=== PATIENT | male | born 1965 | race Caucasian/White ===

== ENCOUNTER 2023-11-09 09:07 | Emergency (ER) | payer SELFPAY ==
[2023-11-09 09:15] VITALS: BP 105/75
--- NOTE | 2023-11-09 09:58 | ED.GENMED ---
History of Present Illness
General
Chief Complaint: Skin Surface Trauma
Source: patient
Exam Limitations: none
Time Seen by Provider: 11/09/23 09:34
Nursing documentation reviewed up to this point in time: agreed with
Travel History
Have you had any contact with someone who has COVID-19?: No
Do you have any symptoms of coronavirus? Fever > 100 degrees, chills, cough, shortness of breath, sore throat, loss of taste or smell, muscle aches, or headache?: No
History of Present Illness
History of Present Illness:
58-year-old male presenting to the emergency department today with concerns of left hand thumb laceration that occurred just prior to arrival when he was cutting boxes with a box chipper. Lycette shot was 5 years ago. Noticed immediate bleeding to
the area applied pressure which controlled the bleeding denies any significant pain denies numbness weakness able to move his thumb normally.
Review of Systems
Review of Systems
Allergies reviewed?: Yes
All Other Systems: ROS reviewed and negative except as documented in HPI and ROS
Phy Exam
Physical Exam
Physical Exam:
GENERAL: Alert , in no apparent distress
EYE: pupils equal and reactive
NECK: Supple, no significant adenopathy.
ENT: o/p clr, mmm.
CARDIAC: Regular rate and rhythm .
LUNGS: Clear breath sounds bilaterally, no acute respiratory distress, no wheezes/rales/rhonchi
ABDOMEN: Soft, without focal tenderness, no r/g, no cvat
NEUROLOGICAL: Alert and oriented, no focal neuro deficits
SKIN: Laceration to the dorsal aspect of the thenar region roughly 1 cm in length active bleeding nonpulsatile dark red in color. Warm and dry, skin intact.
MUSCULOSKELETAL: No edema, well perfused.
PSYCH: Normal and appropriate interaction.
Course
Vital Signs
Initial and Last Documented VS:
Initial Vital Signs
Temp Pulse Resp BP Pulse Ox
98.4 F 58 16 105/75 98
11/09/23 09:15 11/09/23 09:15 11/09/23 09:15 11/09/23 09:15 11/09/23 09:15
Last Documented Vital Signs
Temp Pulse Resp BP Pulse Ox
98.4 F 58 16 105/75 98
11/09/23 09:15 11/09/23 09:15 11/09/23 09:15 11/09/23 09:15 11/09/23 09:15
Procedures
Laceration Closure
Left Lateral Dorsal Thumb:
Status of Wound: clean
Size of Wound in cm: 1.5
Description of Wound Edges: sharp
Preparation: cleaned with saline
Anesthesia: 1% Lidocaine with epi
Revision/Debridement: routine- no revision and irrigate-direct pressure
Wound exploration: explored to base- no FB and no tendon involvement
Type of Closure: single layer closure
Skin Closure Material: 4-0 nylon
Number of sutures: 2
Additional information:
1 dyldmn-kg-ifbyl stitch to control bleeding 1 simple interrupted stitch
MDM/Problems Addressed
MDM/Problems Addressed:
58-year-old male presenting to the emergency department today with concern bleeding from a laceration caused by knife when cutting boxes prior to arrival. No numbness or weakness ranging the thumb normally area was cleaned thoroughly and closed
with a dkcnbv-me-paqjw stitch to control bleeding and then a simple interrupted stitch to for further closure. Bleeding seems to be controlled pressure dressing was placed. Patient was observed for 1 hour and reassess to ensure there is no rapid
expanding hematoma which there was not everything looked very normal he tolerated well. Able for outpatient follow-up return precautions given advised for suture removal in 12 to 14 days. Patient appears to be low risk for infection patient does
not have specific immunosuppressive risk factors or diabetes. Wound is very clean in appearance. He was not started on antibiotics.
*Critical Care Note
Total Time (30-74mins, 75-104mins- exclusive of procedures): Not Applicable
ED Attending Note
-
Portions of this chart may have been created with voice recognition software.� Occasional wrong word or��sound alike� substitutions may have occurred due to the inherent limitations of voice recognition software.
Discharge Plan
Departure
Patient Disposition: Home (Routine Discharge)
Date of Disposition: 11/09/23
Time of Disposition: 11:07
Patient with high blood pressure during this ER visit?: No
Condition: Good
Covid-19: Not Applicable
Discharge Problem:
Hand laceration
Instructions: Laceration Repair With Stitches (DC)
Referrals:
Houston Sabillon, DO [Family Provider] -
Activity Restrictions/Additional Instructions:
You came to the emergency department today with concerns of a laceration to your hand. This was sutured with 1 simple interrupted stitch and 1 dpkimg-wc-tfuyf stitch to control bleeding. Please keep this wrapped and clean and have sutures removed
in 12 to 14 days. Return to the emergency department for any worsening, new or concerning symptoms.
Interventions
Interventions:
*ED COVID-19 Vaccine History Last Done: 11/09/23 09:15
Discharge Date and Time
Print Language: MARSHALLESE
== END 2023-11-09 11:22 | disposition home or self-care (01) ==
LOC: EMR 09:07
PROVIDERS: EMERGENCY PHYSICIAN Emergency Medicine; FAMILY PHYSICIAN Family Medicine
DX: S61.012A Laceration without foreign body of left thumb without damage to nail, initial encounter (principal); W26.0XXA Contact with knife, initial encounter
CPT/HCPCS: 99282; 12001

== ENCOUNTER 2025-01-17 03:02 | Inpatient (IN) | payer OTHER, SELFPAY ==
[2025-01-16 20:36] VITALS: BP 113/68
--- NOTE | 2025-01-16 20:37 | ED.GENMED ---
History of Present Illness
<Gary Miner MD, Resident - Last Filed: 01/17/25 00:02>
General
Chief Complaint: Abnormal Lab Value
Source: patient, records and retirement
Exam Limitations: other (Expressive Aphasia)
Time Seen by Provider: 01/16/25 20:29
Nursing documentation reviewed up to this point in time: agreed with
History of Present Illness
History of Present Illness:
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 He was found to have a low hemoglobin
level (6.8) and was sent to get a transfusion. Patient when asked questions was able to answer via nods. He does not have any acute symptoms and denies any light headedness, weakness, nausea, vomiting, chest pain, shortness of breath, or any recent
blood in stool or worsening fatigue.
Past History
<Gary Miner MD, Resident - Last Filed: 01/17/25 00:02>
Past History
ED Past Medical History: CVA, GERD, HTN, Hypercholesterolemia and Other (Expressive Aphasia)
Review of Systems
<Gary Miner MD, Resident - Last Filed: 01/17/25 00:02>
Review of Systems
Unable to obtain full review of systems at this time due to: other (Expressive Aphasia)
Other source history: retirement
All Other Systems: ROS reviewed and negative except as documented in HPI and ROS
Constitutional: Reports no symptoms
EENT: Reports no symptoms
Respiratory: Reports no symptoms
Cardiac: Reports no symptoms
ABD/GI: Reports no symptoms
: Reports no symptoms
Musculoskeletal: Reports no symptoms
Skin: Reports no symptoms
Neurological: Reports no symptoms
Endocrine: Reports no symptoms
Hematologic/Lymphatic: Reports no symptoms
Psychiatric: Reports no symptoms
Phy Exam
<Gary Miner MD, Resident - Last Filed: 01/17/25 00:02>
General Physical Exam
General Presentation: well appearing and no apparent distress
General Skin: warm and dry
General Habitus: normal
General Mental: alert
General Hydration: appears well hydrated
Cardiovascular Exam
Cardiovascular Exam: regular rate/rhythm, no edema and no murmur
Pulmonary Exam
Pulmonary Exam: lungs clear, no respiratory distress, no crackles and no wheezing
Gastrointestinal Exam
Gastrointestinal Exam: normal bowel sounds, non tender, soft and non distended
Stool: brown
Guaiac Status: positive
Musculoskeletal Exam
Musculoskeletal Exam: other (Right hemiparesis)
Course
<Gary Miner MD, Resident - Last Filed: 01/17/25 00:02>
Orders/Labs/Results
Orders:
Orders
01/16/25 20:25
EKG [Electrocardiogram (*1)] Urgent
Reason for Study: Other
Other Reason for Exam: low hgb
01/16/25 20:31
EKG- Treatment ONCE
01/16/25 20:34
B12 [Vitamin B12] Urgent
Complete Blood Count/With Diff Urgent
Comprehensive Metabolic Panel Urgent
Ferritin Urgent
Folate Urgent
Iron Urgent
Comment: ADD ON
Total Iron Binding Urgent
Comment: ADD ON
01/16/25 21:07
Add On- LAB Urgent
Comments:: add on
Tests Added?: iron TIBC and ferritin folate vitamin b12
01/16/25 21:09
Type+Screen Urgent
01/16/25 22:25
ABO2 Urgent
BBK Wristband Number:
Associate notified that ABO2 has been ordered: [id number]
Date: 01/16/25
Time: 22:18
Call Worker ID: [id number]
01/16/25 22:34
* Blood Bank Products Urgent
Blood Bank Products: *Packed RBC Leuko(PRBC's)
Quantity: 1
Transfuse Today: Yes
Reason: Anemia
01/16/25 23:27
Pantoprazole [Protonix IV] 80 mg IV NOW STA
Abnormal Lab Results
01/16/25 01/16/25
20:34 21:09
RBC 2.77 L 10^6/uL
(4.70-6.10)
Hgb 7.1 L g/dL
(13.0-18.0)
Hct 22.5 L %
(39.0-52.0)
MCH 25.6 L pg
(27.0-31.0)
MCHC 31.6 L g/dL
(33.0-37.0)
RDW 15.7 H %
(11.5-14.5)
MPV 10.6 H fL
(7.4-10.4)
Absolute Monos (auto) 0.9 H 10^3/uL
(0.1-0.6)
Monocytes % 11.6 H %
(1.7-9.3)
Eosinophils % 7.8 H %
(0-6)
BUN 24 H mg/dl
(9-20)
Glucose 111 H mg/dl
(70-99)
Iron < 20 L ug/dl
(49-181)
Ferritin 10.1 L ng/ml
(17.9-464.0)
AST 12 L U/L
(17-59)
Crossmatch IS Only See Detail
01/16/25 20:34
01/16/25 20:34
Vital Signs
Initial and Last Documented VS:
Initial Vital Signs
Temp
36.9 C
01/16/25 20:25
Last Documented Vital Signs
Temp Pulse Resp BP Pulse Ox
36.5 C 66 19 107/56 96
01/17/25 00:07 01/17/25 00:07 01/17/25 00:07 01/17/25 00:07 01/17/25 00:07
<Robert Layne MD - Last Filed: 01/17/25 00:25>
Orders/Labs/Results
Orders:
Orders
01/16/25 20:25
EKG [Electrocardiogram (*1)] Urgent
Reason for Study: Other
Other Reason for Exam: low hgb
01/16/25 20:31
EKG- Treatment ONCE
01/16/25 20:34
B12 [Vitamin B12] Urgent
Complete Blood Count/With Diff Urgent
Comprehensive Metabolic Panel Urgent
Ferritin Urgent
Folate Urgent
Iron Urgent
Comment: ADD ON
Total Iron Binding Urgent
Comment: ADD ON
01/16/25 21:07
Add On- LAB Urgent
Comments:: add on
Tests Added?: iron TIBC and ferritin folate vitamin b12
01/16/25 21:09
Type+Screen Urgent
01/16/25 22:25
ABO2 Urgent
BBK Wristband Number:
Associate notified that ABO2 has been ordered: [id number]
Date: 01/16/25
Time: 22:18
Call Worker ID: [id number]
01/16/25 22:34
* Blood Bank Products Urgent
Blood Bank Products: *Packed RBC Leuko(PRBC's)
Quantity: 1
Transfuse Today: Yes
Reason: Anemia
01/16/25 23:27
Pantoprazole [Protonix IV] 80 mg IV NOW STA
Abnormal Lab Results
01/16/25 01/16/25
20:34 21:09
RBC 2.77 L 10^6/uL
(4.70-6.10)
Hgb 7.1 L g/dL
(13.0-18.0)
Hct 22.5 L %
(39.0-52.0)
MCH 25.6 L pg
(27.0-31.0)
MCHC 31.6 L g/dL
(33.0-37.0)
RDW 15.7 H %
(11.5-14.5)
MPV 10.6 H fL
(7.4-10.4)
Absolute Monos (auto) 0.9 H 10^3/uL
(0.1-0.6)
Monocytes % 11.6 H %
(1.7-9.3)
Eosinophils % 7.8 H %
(0-6)
BUN 24 H mg/dl
(9-20)
Glucose 111 H mg/dl
(70-99)
Iron < 20 L ug/dl
(49-181)
Ferritin 10.1 L ng/ml
(17.9-464.0)
AST 12 L U/L
(17-59)
Crossmatch IS Only See Detail
01/16/25 20:34
01/16/25 20:34
Vital Signs
Initial and Last Documented VS:
Initial Vital Signs
Temp
36.9 C
01/16/25 20:25
Last Documented Vital Signs
Temp Pulse Resp BP Pulse Ox
36.5 C 66 19 107/56 96
01/17/25 00:07 01/17/25 00:07 01/17/25 00:07 01/17/25 00:07 01/17/25 00:07
<Gary Miner MD, Resident - Last Filed: 01/17/25 00:02>
MDM/Problems Addressed
Differential Diagnosis Includes:
Iron deficiency anemia, Blood loss anemia (GI vs others)
MDM/Problems Addressed:
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
Will recheck labs and get an EKG
Transfusion indicated if labs confirmed to be low (Type+Screen ordered along with Iron Studies)
Hgb 7.1 today in the ED.
Called [facility] and as per nurse, patient's Hgb was 7.4 last week and his blood thinners (Aspirin+Plavix 75mg) were held. He was started on iron supplementation at the time. Patient has had no symptoms as per the nurse. Asked her to fax over
records.
Records not sent over yet. Rectal exam and stool was positive for blood. Patient transfused one liter of blood, started on Protonix. Will be admitted for further management of blood loss anemia.
Chronic conditions affecting care: Neurological disorder (CVA causing Expressive Aphasia) and Other
<Gary Miner MD, Resident - Last Filed: 01/17/25 00:02>
*Pulse Oximetry
SaO2: 100
Oxygen Mode of Delivery: Room air
Patient hypoxic: no
*Critical Care Note
Total Time (30-74mins, 75-104mins- exclusive of procedures): Not Applicable
ED Attending Note
<Gary Miner MD, Resident - Last Filed: 01/17/25 00:02>
-
Portions of this chart may have been created with voice recognition software.� Occasional wrong word or��sound alike� substitutions may have occurred due to the inherent limitations of voice recognition software.
<Robert Layne MD - Last Filed: 01/17/25 00:25>
ED Attending Note
Patient seen and examined by attending physician: Yes
I performed a history and physical exam of patient and discussed management with resident, I reviewed resident's note and agree with documented findings and plan of care.: Yes
ED Attending Note:
I have seen and evaluated the patient with a [id number]-[id number] encounter. I have spoken to the resident and involved in the medical history, the physical exam, medical decision making.
Evaluation and management service: agree unless noted differently below.
Results interpretation: agree unless noted differently below.
Focused HPI: 59-year-old male with history as noted presents from [facility] for evaluation of anemia. Patient has expressive aphasia and is limited as a historian as a result. Much of history obtained from retirement. Patient
reportedly had lab work drawn last week which showed drop in hemoglobin. No GI bleeding was reported. Apparently his blood thinners were held�aspirin and Plavix�last week. Repeat labs showed continued drop in hemoglobin with hemoglobin of 6.8
today which prompted ER referral. Patient limited in his history but does not seem to indicate any symptoms such as chest pain, shortness of breath, lightheadedness or abdominal pain.
Physical exam: Awake and alert. Vital signs are normal. Abdomen soft no apparent tenderness. Brown stool Hemoccult positive.
Medical Decision Makin-year-old male presents with anemia noted on outpatient labs. Vitals are stable. Hemoglobin today 7.1 compared to reported hemoglobin of 6.8 earlier. CMP no clinically significant abnormalities. Added iron studies,
B12/folate, type and screen. Will transfuse a unit of PRBCs. He is heme positive today. Will start PPI. Admit for continued monitoring and treatment. Discussed with hospitalist.
Discharge Plan
Departure
Patient Disposition: Admit
Date of Disposition: 01/17/25
Time of Disposition: 00:00
Admit to: Med/Surg
Presentation/result/management discussed w/ accepting MD/DO: Hospitalist
Patient with high blood pressure during this ER visit?: No
Condition: Fair
Discharge Problem:
Anemia
Referrals:
NONE,* [Active, Internal Medicine]
Interventions
Interventions:
*Risk Screen - Suicide Last Done: 01/16/25 20:25
*General Assessment Last Done: 01/16/25 20:25
*Neglect/Abuse Screening Last Done: 01/16/25 20:25
*ED- Fall Risk Assessment Last Done: 01/16/25 20:25
*ED COVID-19 Vaccine History Last Done: 01/16/25 20:25
Discharge Date and Time
Print Language: ALBANIAN
[2025-01-16 20:44] LABS: Hematocrit 22.5 % (39.0-52.0); Hemoglobin 7.1 g/dL (13.0-18.0); Mean Corp Hgb Conc. 31.6 g/dL (33.0-37.0); Mean Corpuscular Volume 81.2 fL (80.0-94.0); Nucleated Red Blood Cells % 0 % (-); Platelet Count 253 10^3/uL (130-400); Red Cell Dist. Width 15.7 % (11.5-14.5)
[2025-01-16 21:00] VITALS: BP 118/64
[2025-01-16 21:11] LABS: ALT (SGPT) 17 U/L (0-50); AST (SGOT) 12 U/L (17-59); Albumin 3.7 g/dl (3.5-5.0); Alkaline Phosphatase 83 U/L (38-126); Blood Urea Nitrogen 24 mg/dl (9-20); Calcium 9.3 mg/dl (8.4-10.2); Carbon Dioxide 26 mmol/L (22-30); Chloride 103 mmol/L (98-107); Glucose 111 mg/dl (70-99); Potassium 4.2 mmol/L (3.5-5.1); Sodium 135 mmol/L (135-145); Total Protein 6.4 g/dl (6.3-8.2); eGFR > 60.00
[2025-01-16 21:22] LABS: Iron < 20 ug/dl (49-181)
[2025-01-16 21:28] LABS: Total Iron Binding Capacity 346 ug/dl (261-462)
[2025-01-16 22:00] VITALS: BP 116/63
[2025-01-16 23:00] VITALS: BP 114/69
[2025-01-16] MEDS: PROTONIX IV 80 MG IV (23:37)
[2025-01-16 23:44] LABS: Ferritin 10.1 ng/ml (17.9-464.0)
[2025-01-16 23:51] VITALS: BP 120/74
[2025-01-17] VITALS (46 sets, daily range): BP systolic 82–155; BP diastolic 47–83
[2025-01-17 00:15] LABS: Folate 7.1 ng/ml (2.76-20); Vitamin B12 400 pg/ml (239-931)
--- NOTE | 2025-01-17 02:25 | HPS.HSE ---
Family Physician
-
Family Physician: Cooper Bhagat MD
Chief Complaint
-
Anemia
History of Present Illness
Patient is a 59y M with PMH significant for ASCVD / CVA who presents to ED from local [place] for evaluation of anemia / abnormal labs. History obtained from patient , ED staff and NH report. Patient suffered major CVA early 2024 with resultant R
(dominant side) hemiparesis and expressive aphasia. He currently resides at [facility] and is maintained on DAPT. He was noted to have anemia on labs about one week ago (7.4). His DAPT was held and repeat labs were done today. This showed Hgb
= 6.8 and patient was sent to the ED for further evaluation. Patient denies any active / current complaints. He denies any evident bleeding, abdominal pain, etc.
Hgb in the ED was 7.1. Exam revealed brown, heme positive stool and patent is referred for admission.
One unit of PRBCs has been ordered in the ED.
Medical History
Past Medical History
Past Medical History: Reports Other
Additional Past Medical History:
ASCVD / CVA
Right Hemiparesis / Expressive Aphasia
Hypertension
GERD
Past Surgical History: Reports Other
Additional Past Surgical History:
None Known
Social History
Unable to obtain full social history at this time due to: Patient Non-verbal (expressive aphasia)
Family History
Family History: Not pertinent
Allergies / Home Medications
Allergies reflects when Allergies were last updated in [employer].
Home Medications with original date entered in [employer]
Allergy/Medication List:
Allergies
Allergy/AdvReac Type Severity Reaction Status Date / Time
No Known Allergies Allergy Verified 01/16/25 20:24
Home Medications
acetaminophen 325 mg tablet 650 mg PO Q6H PRN pain 01/17/25
amlodipine 10 mg tablet 10 mg PO DAILY 01/17/25
aspirin 81 mg chewable tablet 81 mg PO DAILY 01/17/25
atorvastatin 40 mg tablet 40 mg PO DAILY 01/17/25
carvedilol 6.25 mg tablet 6.25 mg PO BID 01/17/25
clopidogrel 75 mg tablet 75 mg PO DAILY 01/17/25
ferrous gluconate 324 mg (37.5 mg iron) tablet 324 mg PO Q48H 01/17/25
magnesium hydroxide 400 mg/5 mL oral suspension (Milk of Magnesia) 30 ml PO HS PRN constipation 01/17/25
pantoprazole 40 mg tablet,delayed release 40 mg PO BID 01/17/25
valsartan 320 mg-hydrochlorothiazide 25 mg tablet 1 tab PO DAILY 01/17/25
Review of Systems
-
History Source: Patient (limited ROS due to expressive aphasia - but nods / shakes head appropriately to questions.)
A 12 point ROS was completed and negative except as noted: Yes
Constitutional: Denies Fever or Chills
Respiratory: Denies Cough or Trouble Breathing
Cardiac: Denies Chest Pain or Palpitations
Abdomen/GI: Denies Abdominal Pain, Nausea, Vomiting or Diarrhea
Neurological: Reports Weakness; Denies Dizzy or Headache
Physical Exam
Vital Signs
Vital Signs
Temp Pulse Resp BP Pulse Ox
97.8 F 65 18 135/77 60
01/17/25 01:42 01/17/25 02:00 01/17/25 02:00 01/17/25 02:00 01/17/25 02:00
Physical Exam
General: Other (59y M in no acute distress.)
HEENT: Moist mucous membranes and PERRLA
Respiratory: Clear; No Wheezes, Rales or Rhonchi
Cardiac: Regular Rhythm; No Murmur
GI: Non Tender, Non Distended and Normal Bowel Sounds
Musculoskeletal: No Edema and Other
Neuro: Awake, Alert and Other (R hemiparesis with contracture of RUE. Expressive aphasia. Follows commands and nods appropriately.)
Laboratory Results
-
01/16/25 20:34
01/16/25 20:34
Laboratory Results
Total Bilirubin 0.3 mg/dl (0.2-1.3) 01/16/25 20:34
AST 12 U/L (17-59) L 01/16/25 20:34
ALT 17 U/L (0-50) 01/16/25 20:34
Alkaline Phosphatase 83 U/L (38-126) 01/16/25 20:34
Impression/Plan
-
A/P: Patient is a 59y M with PMH significant for hypertension, ASCVD / CVA and R hemiparesis / expressive aphasia who presents to ED from [place] for evaluation of anemia.
Normocytic Anemia
Heme Positive Stools
- Admit for further evaluation and treatment.
- Patient on DAPT s/p CVA in early 2024 - held for about one week.
- Hgb 7.1 in the ED - transfused 1 unit of PRBCs.
- Iron is undetectable - would benefit from IV iron supplementation.
- Follow H&H and monitor for any evidence of increased / active bleeding.
- IV PPI BID.
- GI evaluation for possible endoscopic examination.
ASCVD
CVA with R Hemiparesis and Expressive Aphasia
- No new neurologic deficits.
- Continue ASA alone for now.
- Continue statin, BP control, etc.
- Follow for any new symptoms or complaints.
- PT / OT evaluations for ongoing therapy.
Benign Hypertension
- Stable. Continue usual med regimen with holding parameters.
DVT Prophylaxis: SCDs
Code Status: Full
[2025-01-17 04:01] LABS: Hematocrit 28.2 % (39.0-52.0); Hemoglobin 9.1 g/dL (13.0-18.0)
[2025-01-17 06:50] LABS: Hematocrit 27.1 % (39.0-52.0); Hemoglobin 8.7 g/dL (13.0-18.0); Mean Corp Hgb Conc. 32.1 g/dL (33.0-37.0); Mean Corpuscular Volume 80.4 fL (80.0-94.0); Platelet Count 248 10^3/uL (130-400); Red Cell Dist. Width 15.4 % (11.5-14.5)
[2025-01-17 07:06] LABS: Blood Urea Nitrogen 24 mg/dl (9-20); Calcium 9.7 mg/dl (8.4-10.2); Carbon Dioxide 24 mmol/L (22-30); Chloride 105 mmol/L (98-107); Glucose 106 mg/dl (70-99); Potassium 4.6 mmol/L (3.5-5.1); Sodium 137 mmol/L (135-145); eGFR > 60.00
--- NOTE | 2025-01-17 07:33 | CON.GI ---
Addendum entered and electronically signed by Preeti Perea MD 01/17/25 11:11:
I saw and examined the patient.
The TRESTLEMAN or PA's note was reviewed and I agree with the note.
Comment:
Pt is a 59 y/o man with expressive aphasia and hx of CVA on DAPT which was stopped last week with hgb drop. Pt has iron def anemia and heme positive stools. No abdominal pain or vomiting
abd: soft nontender
impression
iron deficiency anemia
heme pos stool
hx of CVA
plan:
Pt able to communicate his wishes by answering my questions by squeezing his left hand. He is agreeable to an EGD (I did get consent from sister lizbeth as well).
He does not want to proceed with colonoscopy and won't take preparation. He does understand that colonoscopy is advisable but refuses.
hgb relatively stable from 1 week ago and can follow while in the hospital
PPI
Addendum entered and electronically signed by BRAYDEN Hair 01/17/25 10:53:
plan for EGD today reviewed with Dr. Vega
Addendum entered and electronically signed by BRAYDEN Hair 01/17/25 10:52:
[facility] Plavix was 01/10/25
Original Note:
Consultation
-
Date/Time Consultation Requested: 01/17/25314
Date/Time Consultation Performed: 01/17/2530
Requesting Provider: Carlos Eduardo Lozada DO
Performing Provider: BRAYDEN Lee, Preeti Perea MD
Reason for Consultation: anemia, GI bleed
Medical History
Chief Complaint / HPI
Chief Complaint: weakness
History of Present Illness:
Pt is a 59yo with hx CVA on DAPT with hold over last week with right hemiparesis and expressive aphasia, HTN, HLD, GERD, former tobacco, ETOH, substance abuse presents from [facility] with abnormal labs with hbg 6.8. Rectal exam in ER with brown
heme + stools. Iron studies consistent with iron deficiency. Per review with sister. Pt has CVA while at [place] in May then went to [place]. He was then taken by girlfriend to [place] for 3 weeks with difficult taking care of patient and
return after 3 weeks then taken to [place] at [facility] since that time.
Per patient and sister currently denies any GI symptoms. Pt nodes no to odynophagia, dysphagia, GERD, nausea, vomiting, abdominal pain, diarrhea, constipation, blood or black in stools. Unsure about prior EGD/colon.
Past Medical History
Past Medical History: GERD, HTN, Hypercholesterolemia and Other (expression Aphasia )
Social History
Tobacco: Former Smoker
Alcohol: Former
Drug: Other (former user )
Personal: Single
Living: Fpc
Employment: Not Employed
Family History
Family History: Other (father with hx cirrhosis, no family hx colon Ca or polyps)
Allergies / Home Medications
Allergy/AdvReac Type Severity Reaction Status Date / Time
No Known Allergies Allergy Verified 01/16/25 20:24
�Medication �Instructions �Recorded
acetaminophen 325 mg tablet 650 mg PO Q6H PRN pain 01/17/25
amlodipine 10 mg tablet 10 mg PO DAILY 01/17/25
aspirin 81 mg chewable tablet 81 mg PO DAILY 01/17/25
atorvastatin 40 mg tablet 40 mg PO DAILY 01/17/25
carvedilol 6.25 mg tablet 6.25 mg PO BID 01/17/25
clopidogrel 75 mg tablet 75 mg PO DAILY 01/17/25
ferrous gluconate 324 mg (37.5 mg 324 mg PO Q48H 01/17/25
iron) tablet
magnesium hydroxide 400 mg/5 mL 30 ml PO HS PRN constipation 01/17/25
oral suspension (Milk of Magnesia)
pantoprazole 40 mg tablet,delayed 40 mg PO BID 01/17/25
release
valsartan 320 1 tab PO DAILY 01/17/25
mg-hydrochlorothiazide 25 mg tablet
Review of Systems
-
History Source: Patient and Family
Constitutional: Reports Weight Loss and Fatigue
EENT: Reports No Symptoms
Respiratory: Reports No Symptoms
Cardiac: Reports No Symptoms
Abdomen/GI: Reports No Symptoms
Neurological: Reports Other (expressive aphasia and right hemiparesis )
Endocrine: Reports No Symptoms
Hematologic/Lymphatic: Reports Bleeding (heme + stool in ER)
Vital Signs
Temp Pulse Resp BP Pulse Ox
97.8 F 71 21 122/73 96
01/17/25 01:42 01/17/25 06:30 01/17/25 06:30 01/17/25 06:00 01/17/25 04:00
Physical Exam
Exam
General: Well Developed, Well Nourished and No Apparent Distress
HEENT: Normocephalic and Anicteric
Respiratory: Clear
Cardiac: Regular Rhythm
GI: Soft, Non Tender and Non Distended
Rectal: Other (brown heme + in ER)
Musculoskeletal: No Clubbing and No Cyanosis
Skin: Warm and Dry
Neuro: Awake, Alert and Other (limited answering question with expressive aphasia )
Psych: Calm
Results
WBC 8.9 10^3/uL (4.8-10.8) 01/17/25 06:32
Hgb 8.7 g/dL (13.0-18.0) L 01/17/25 06:32
Hct 27.1 % (39.0-52.0) L 01/17/25 06:32
MCV 80.4 fL (80.0-94.0) 01/17/25 06:32
Plt Count 248 10^3/uL (130-400) 01/17/25 06:32
Absolute Neuts (auto) 3.3 10^3/uL (1.4-6.5) 01/16/25 20:34
Sodium 137 mmol/L (135-145) 01/17/25 06:32
Potassium 4.6 mmol/L (3.5-5.1) 01/17/25 06:32
Chloride 105 mmol/L (98-107) 01/17/25 06:32
Carbon Dioxide 24 mmol/L (22-30) 01/17/25 06:32
BUN 24 mg/dl (9-20) H 01/17/25 06:32
Creatinine 0.7 mg/dL (0.7-1.3) 01/17/25 06:32
Calcium 9.7 mg/dl (8.4-10.2) 01/17/25 06:32
Total Bilirubin 0.3 mg/dl (0.2-1.3) 01/16/25 20:34
AST 12 U/L (17-59) L 01/16/25 20:34
ALT 17 U/L (0-50) 01/16/25 20:34
Alkaline Phosphatase 83 U/L (38-126) 01/16/25 20:34
Diagnostic Image Results:
Prior GI Procedures:
EGD:unknown
Colonoscopy: unknown
Assessment / Plan
-
Pt is a 59yo with hx CVA on DAPT with hold over last week with right hemiparesis and expressive aphasia, HTN, HLD, GERD presents from [facility] with abnormal labs with hbg 6.8. Rectal exam in ER with brown heme + stools.
-heme + anemia with iron deficiency
-CVA with hemiparesis and expressive aphasia on recent DAPT
other medical problems:
-HTN
-HLD
-GERD
-ASCVD
-prior ETOH, tobacco and substance abuse
PLAN:
Etiology of new Iron deficiency anemia related to PUD, ectasia, mass, portal gastropathy with prior ETOH use vs other
current brown heme + stool in ER
agree with transfusion and iron infusion in ER
I reviewed with patient with some limited hx with expressive asphasia - nods no to EGD/colon but also reviewed with sister Lizbeth-- no formal POA and listed was prior girlfriend who is now not participating in patient care. Sister would
consider EGD/colon for work up. She did admit pt may not be cooperative for prep-- will review with Dr. Perea for testing.
I left message for [facility] to verify last anticoagulation with Plavix ? 1 week ago per admission notes
trend hbg
s/p transfusion
cont PPI
currently NPO
cont IV iron
-
-
Thank you for consultation and allowing me to participate in the patient's care. Please call the business analysis consultant GI physician during the after hours with any questions or concerns.
[2025-01-17] MEDS: PROTONIX IV 40 MG IV ×2 (09:27→20:21)
[2025-01-17] MEDS: NORVASC 10 MG PO (09:29)
[2025-01-17] MEDS: LOW STRENGTH ASPIRIN 81 MG PO (09:29)
[2025-01-17] MEDS: DIOVAN 320 MG PO (09:29)
[2025-01-17] MEDS: LIPITOR 40 MG PO (09:29)
[2025-01-17] MEDS: COREG 6.25 MG PO (09:29)
[2025-01-17] MEDS: ORETIC 25 MG PO (09:29)
[2025-01-17 09:32] LABS: Hematocrit 27.5 % (39.0-52.0); Hemoglobin 8.7 g/dL (13.0-18.0)
--- NOTE | 2025-01-17 11:40 | W.PN.UPDATE ---
Update Note
Progress Note Update
EGD with mild gastritis/duodenitis only
Pt refuses colonoscopy
plan:
PPI once a day while on anticoagulation (ok to restart if needed)
diet as tolerated
will sign off call with questions
--- NOTE | 2025-01-17 14:28 | W.PN.HOSP.TC ---
Today's Communication/Plan
-
Monitor vital signs see plan
Nonbillable note
EGD today
Speech to evaluate
Assessment / Plan
Assessment / Plan
General: Other (59y M in no acute distress.)
HEENT: Moist mucous membranes and PERRLA
Respiratory: Clear; No Wheezes, Rales or Rhonchi
Cardiac: Regular Rhythm; No Murmur
GI: Non Tender, Non Distended and Normal Bowel Sounds
Musculoskeletal: No Edema and Other
Neuro: Awake, Alert and Other (R hemiparesis with contracture of RUE. Expressive aphasia. Follows commands and nods appropriately.)
Normocytic Anemia
Heme Positive Stools
- Patient on DAPT s/p CVA in early 2024 - held for about one week. Will need to contact rehab or family to see why patient is on dual antiplatelet therapy still
- Status post PRBC, continue to monitor hgb
- Iron deficiency anemia, started IV iron
- Follow H&H and monitor for any evidence of increased / active bleeding.
- IV PPI BID.
- EGD today, GI following
ASCVD
CVA with R Hemiparesis and Expressive Aphasia
- No new neurologic deficits.
- Continue ASA alone for now.
- Continue statin, BP control, etc.
- Follow for any new symptoms or complaints.
- PT / OT evaluations for ongoing therapy.
Speech evaluation
Benign Hypertension
- Stable. Continue usual med regimen with holding parameters.
Hold HCTZ, valsartan for now
DVT Prophylaxis: SCDs
Code Status: Full
Anticipated Discharge: 24 - 48 hours
Subjective/Interval History
-
Date of Service: January 17, 2025
No pain
Objective Data
-
Labs:
Laboratory Results
01/17/25 01/17/25 01/17/25
03:39 06:32 09:21
WBC 8.9
Hgb 9.1 L D 8.7 L 8.7 L
Hct 28.2 L 27.1 L 27.5 L
Plt Count 248
Sodium 137
Potassium 4.6
Chloride 105
Carbon Dioxide 24
BUN 24 H
Creatinine 0.7
Glucose 106 H
Calcium 9.7
01/17/25 01/17/25
15:16 21:16
WBC
Hgb Pending Pending
Hct Pending Pending
Plt Count
Sodium
Potassium
Chloride
Carbon Dioxide
BUN
Creatinine
Glucose
Calcium
Vital Signs:
Vital Signs
Temp Pulse Resp BP Pulse Ox
98.1 F 60 21 108/67 100
01/17/25 13:05 01/17/25 13:45 01/17/25 13:45 01/17/25 13:45 01/17/25 13:40
I&O
01/16/25 01/17/25 01/18/25
06:59 06:59 06:59
Intake Total 250 / 250
Balance 250 / 250
[2025-01-17] MEDS: FERRLECIT 110 MG IV (15:03)
[2025-01-17 15:54] LABS: Hematocrit 26.2 % (39.0-52.0); Hemoglobin 8.6 g/dL (13.0-18.0)
--- NOTE | 2025-01-17 16:08 | PTOTSP ---
Dysphagia Evaluation
WFL-mild oral stage, no signs of pharyngeal dysphagia or aspiration. At elevated risk for dysphagia given impulsivity and prior CVA with right sided weakness.
Recommend:
1. Regular, Thin
2. Meds as best tolerated
3. Supervision; assist as needed
4. Strategies: slow rate, small sips/bites, check for oral clearance
No further dysphagia tx warranted. OP CLAIM ADMINISTRATOR evaluation/tx warranted for verbal apraxia that significantly limits communication and concern for mixed aphasia.
[2025-01-17] MEDS: COREG PO (20:13)
--- NOTE | 2025-01-17 21:25 | PTCARENOTE ---
Pt confused with expressive aphasia. Pt incontinent of large amount of urine, Pt changed and repositioned. Pt's bp on r arm was 77/57 and L arm was 134/82. HR: 50s, nsr. Pt unable to voice any concerns. Hepkiaiba NEGRITONO notified and came to the
bedside. BP done by provider. no orders at this time.
[2025-01-17 21:30] LABS: Hematocrit 25.9 % (39.0-52.0); Hemoglobin 8.5 g/dL (13.0-18.0)
[2025-01-18 06:51] LABS: Hematocrit 27.8 % (39.0-52.0); Hemoglobin 8.7 g/dL (13.0-18.0); Mean Corp Hgb Conc. 31.3 g/dL (33.0-37.0); Mean Corpuscular Volume 81.0 fL (80.0-94.0); Nucleated Red Blood Cells % 0 % (-); Platelet Count 285 10^3/uL (130-400); Red Cell Dist. Width 15.7 % (11.5-14.5)
[2025-01-18 07:15] VITALS: BP 128/70
[2025-01-18 07:17] LABS: ALT (SGPT) 17 U/L (0-50); AST (SGOT) 12 U/L (17-59); Albumin 3.7 g/dl (3.5-5.0); Alkaline Phosphatase 94 U/L (38-126); Blood Urea Nitrogen 16 mg/dl (9-20); Calcium 9.8 mg/dl (8.4-10.2); Carbon Dioxide 25 mmol/L (22-30); Chloride 106 mmol/L (98-107); Glucose 90 mg/dl (70-99); Potassium 4.4 mmol/L (3.5-5.1); Sodium 138 mmol/L (135-145); Total Protein 6.4 g/dl (6.3-8.2); eGFR > 60.00
[2025-01-18] MEDS: LIPITOR 40 MG PO (08:55)
[2025-01-18] MEDS: COREG 6.25 MG PO ×2 (08:55→20:58)
[2025-01-18] MEDS: LOW STRENGTH ASPIRIN 81 MG PO (08:55)
[2025-01-18] MEDS: NORVASC 10 MG PO (08:56)
[2025-01-18] MEDS: NSS (PRESERVATIVE FREE) 10 ML IV ×2 (09:02→20:58)
[2025-01-18] MEDS: PROTONIX IV 40 MG IV ×2 (09:02→20:58)
--- NOTE | 2025-01-18 11:05 | CM ---
Reviewed the chart notes and attempted to speak with patient, but he unable to answer questions. CM spoke with [facility] admissions liaison from [facility]. 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 and is wheelchair bound. CM continues
to be available to patient/family and is monitoring medical plan for needs at discharge.
Plan: Discharge back to [facility] when medically stable.
[2025-01-18 11:10] VITALS: BP 92/60
[2025-01-18 11:26] VITALS: BP 96/64; PULSE 71
--- NOTE | 2025-01-18 12:27 | W.PN.HOSP.TC ---
Today's Communication/Plan
-
Monitor vital signs see plan
Continue with aspirin
Discussed with sister over the phone
Continue to hold HCTZ, valsartan
Assessment / Plan
Assessment / Plan
General: Other (59y M in no acute distress.)
HEENT: Moist mucous membranes and PERRLA
Respiratory: Clear; No Wheezes, Rales or Rhonchi
Cardiac: Regular Rhythm; No Murmur
GI: Non Tender, Non Distended and Normal Bowel Sounds
Musculoskeletal: No Edema and Other
Neuro: Awake, Alert and Other (R hemiparesis with contracture of RUE. Expressive aphasia. Follows commands and nods appropriately.)
Normocytic Anemia
Heme Positive Stools
- Patient on DAPT s/p CVA in May 2024- held for about one week. Will need to contact rehab or family to see why patient is on dual antiplatelet therapy still
- Status post PRBC, continue to monitor hgb
- Iron deficiency anemia, started IV iron
- Status post EGD with gastritis. Patient and family does not want colonoscopy. [facility] for [facility] to send accurate medication list is not sure why patient is still on dual antiplatelet therapy
-PPI BID.
GI
ASCVD
CVA with R Hemiparesis and Expressive Aphasia
- No new neurologic deficits.
- Continue ASA alone for now.
- Continue statin, BP control, etc.
- Follow for any new symptoms or complaints.
- PT / OT evaluations for ongoing therapy.
Speech evaluated, okay for regular diet
Benign Hypertension
- Stable. Continue usual med regimen with holding parameters.
Hold HCTZ, valsartan for now
DVT Prophylaxis: SCDs
Code Status: Full
Anticipated Discharge: Within 24 hours
Subjective/Interval History
-
Date of Service: January 18, 2025
no pain
Objective Data
-
Labs:
Laboratory Results
08/13/25
06:06
WBC 7.9
Hgb 8.7 L
Hct 27.8 L
Plt Count 285
Sodium 138
Potassium 4.4
Chloride 106
Carbon Dioxide 25
BUN 16
Creatinine 0.8
Glucose 90
Calcium 9.8
Total Bilirubin 0.5
AST 12 L
ALT 17
Alkaline Phosphatase 94
Vital Signs:
Vital Signs
Temp Pulse Resp BP Pulse Ox
97.7 F 72 16 128/70 98
01/18/25 07:15 01/18/25 08:56 01/18/25 07:15 01/18/25 08:56 01/18/25 07:15
I&O
01/17/25 01/18/25 01/19/25
06:59 06:59 06:59
Intake Total 250 / 250 400 / 400
Balance 250 / 250 400 / 400
--- NOTE | 2025-01-18 12:47 | PTCARENOTE ---
Patient agitated and refusing to keep awake overnight monitor on; Dr. Vega approved removal of telemetry.
[2025-01-18] MEDS: FERRLECIT 110 MG IV (15:05)
--- NOTE | 2025-01-18 15:18 | PN.CDI ---
CDI
- -
CDI:
Physician Documentation Request
Admit Date: 01/17/25 03:02
Dear Doctor Gary,
Patient admitted for anemia.
01/18 Hospitalist PN: 'Normocytic Anemia, Heme Positive Stools... Status post PRBC, continue to monitor hgb, Iron deficiency anemia, started IV iron'
Laboratory Tests
01/16/25 01/17/25 01/17/25
20:34 03:39 06:32
Hgb 7.1 L 9.1 L D 8.7 L
Hct 22.5 L 28.2 L 27.1 L
Based on the above, could you clarify, in your progress note, which of the following is the most likely type of anemia you are evaluating, monitoring and/or treating?
Acute blood loss anemia
Acute blood loss anemia with baseline chronic anemia (Specify type)
Anemia of chronic disease - indicate if neoplastic disease, CKD or other
Chronic iron deficiency anemia due to blood loss
Other
Use of terms such as suspected, likely, concern for, or probable (associated with a specific diagnosis that is being evaluated, monitored, or treated as if it exists) are acceptable and can be coded in the inpatient setting, when documented at the
time of discharge.
Thank you,
Maribel Galvin RN, BSN
CDI Specialist
Available via [place] text
Please use your independent medical judgment in providing your response.
[2025-01-18 15:20] VITALS: BP 112/61
--- NOTE | 2025-01-18 15:31 | WOUNDNOTE ---
[facility] RN NOTE: Reviewed chart and met with patient. Patient appears to have a healed stage 2 of his scrotum. The skin is dry and healed. Clear barrier ointment applied for protection of scrotum and blanchable red sacrum. Heels are intact and patient
is on a [employer] mattress. A condom cath has been applied for moisture management and patient is incontinent of stools. Spoke to MICHEL Armijo who said patient feeds self. Per past chart review patient is 69 inches and current weight is 134 lbs
= BMI 19.8. Patient currently on regular diet. Sacrum and heels intact. MICHEL Armijo given update. Will follow as needed.
[2025-01-18 23:09] VITALS: BP 112/59
[2025-01-19 06:28] LABS: Hematocrit 29.4 % (39.0-52.0); Hemoglobin 9.1 g/dL (13.0-18.0); Mean Corp Hgb Conc. 31.0 g/dL (33.0-37.0); Mean Corpuscular Volume 81.4 fL (80.0-94.0); Nucleated Red Blood Cells % 0 % (-); Platelet Count 289 10^3/uL (130-400); Red Cell Dist. Width 15.9 % (11.5-14.5)
[2025-01-19 06:45] LABS: ALT (SGPT) 15 U/L (0-50); AST (SGOT) 12 U/L (17-59); Albumin 3.7 g/dl (3.5-5.0); Alkaline Phosphatase 93 U/L (38-126); Blood Urea Nitrogen 18 mg/dl (9-20); Calcium 9.4 mg/dl (8.4-10.2); Carbon Dioxide 23 mmol/L (22-30); Chloride 105 mmol/L (98-107); Glucose 101 mg/dl (70-99); Potassium 4.3 mmol/L (3.5-5.1); Sodium 136 mmol/L (135-145); Total Protein 6.0 g/dl (6.3-8.2); eGFR > 60.00
[2025-01-19 07:40] VITALS: BP 113/64
[2025-01-19 07:45] VITALS: BP 127/59
[2025-01-19] MEDS: NSS (PRESERVATIVE FREE) 10 ML IV (08:57)
[2025-01-19] MEDS: PROTONIX IV 40 MG IV (08:57)
[2025-01-19] MEDS: LIPITOR 40 MG PO (08:57)
[2025-01-19] MEDS: LOW STRENGTH ASPIRIN 81 MG PO (08:58)
[2025-01-19] MEDS: COREG 6.25 MG PO (08:58)
[2025-01-19] MEDS: NORVASC 5 MG PO (08:58)
[2025-01-19] MEDS: NORVASC PO (09:20)
--- NOTE | 2025-01-19 11:34 | W.PN.HOSP.TC ---
Addendum entered and electronically signed by Moreno Vega MD 01/20/25 10:25:
BMI not significant
Original Note:
Today's Communication/Plan
-
Monitor vital signs see plan
Continue with aspirin
Continue to hold Plavix on discharge, patient to follow-up closely with [facility] neurology and at [facility] outpatient
Decrease amlodipine
Discharge today
Discussed with sister
Time of discharge 38 minutes
Assessment / Plan
Assessment / Plan
General: Other (59y M in no acute distress.)
HEENT: Moist mucous membranes and PERRLA
Respiratory: Clear; No Wheezes, Rales or Rhonchi
Cardiac: Regular Rhythm; No Murmur
GI: Non Tender, Non Distended and Normal Bowel Sounds
Musculoskeletal: No Edema and Other
Neuro: Awake, Alert and Other (R hemiparesis with contracture of RUE. Expressive aphasia. Follows commands and nods appropriately.)
Normocytic Anemia
Heme Positive Stools
Acute blood loss anemia with baseline chronic iron deficiency anemia
- Patient on DAPT s/p CVA in May 2024- held for about one week.
Per also records from [facility] dual antiplatelet therapy was only recommended for 3 months and then aspirin indefinitely. Discussed with sister. Patient to follow-up closely with [facility] neurology and [facility]. Hold Plavix given recent
bleeding.
- Status post PRBC, continue to monitor hgb
- Iron deficiency anemia, started IV iron
- Status post EGD with gastritis. Patient and family does not want colonoscopy. Asked for [facility] to send accurate medication list is not sure why patient is still on dual antiplatelet therapy
-PPI BID.
GI
ASCVD
CVA with R Hemiparesis and Expressive Aphasia
History of carotid stenosis
- No new neurologic deficits.
- Continue ASA alone for now.
- Continue statin, BP control, etc.
- Follow for any new symptoms or complaints.
- PT / OT evaluations for ongoing therapy.
Speech evaluated, okay for regular diet
Benign Hypertension
- Stable. Continue usual med regimen with holding parameters. Decrease amlodipine to 5 mg
Hold HCTZ, valsartan for now
DVT Prophylaxis: SCDs
Code Status: Full
Anticipated Discharge: Today
Subjective/Interval History
-
Date of Service: January 19, 2025
denies pain
Objective Data
-
Labs:
Laboratory Results
01/19/25
05:27
WBC 7.7
Hgb 9.1 L
Hct 29.4 L
Plt Count 289
Sodium 136
Potassium 4.3
Chloride 105
Carbon Dioxide 23
BUN 18
Creatinine 0.8
Glucose 101 H
Calcium 9.4
Total Bilirubin 0.4
AST 12 L
ALT 15
Alkaline Phosphatase 93
Vital Signs:
Vital Signs
Temp Pulse Resp BP Pulse Ox
98.9 F 86 15 127/59 99
01/19/25 07:45 01/19/25 07:45 01/19/25 07:45 01/19/25 07:45 01/19/25 07:45
I&O
01/18/25 01/19/25 01/20/25
06:59 06:59 06:59
Intake Total 400 / 400 1106 / 1106 658 / 658
Balance 400 / 400 1106 / 1106 658 / 658
--- NOTE | 2025-01-19 11:48 | W.DCSUMMARY ---
Discharge Summary
Discharge Data
Date of Admission: 01/17/25
Date of Discharge: 01/19/25
-
Pending Results: No
Hospital Course
59-year-old male with past medical history of carotid stenosis, CVA with right-sided hemiparesis and expressive aphasia, hypertension, possible polycythemia came to the hospital with anemia along with heme positive stool. Patient was seen by
gastroenterology who performed an EGD which showed gastritis. Patient and family refused colonoscopy. Patient also had iron deficiency and was treated with IV iron here which was later transitioned to oral iron on discharge. Upon review of
patient charts, it appeared that aspirin and Plavix was instructed to only continue for total of 3 months and then discontinue Plavix. This was discussed with patient's family and was instructed highly to follow-up closely with neurology and
neurosurgery from [facility] outpatient and to resume Plavix if they see a need. Given patient bleeding, Plavix was held. Once his symptoms and hemoglobin continue to improve, he was then discharged back to [facility] with instructions to
follow-up with all his physicians outpatient.
Discharge Plan
-
Patient Disposition: Other
Discharge Diagnosis/Procedures: Gastritis
Acute on chronic iron deficiency anemia
History of CVA
History of carotid stenosis
Condition: Good
Diet: As tolerated
Activity: With assistance and As tolerated
Driving Restrictions: Not until seen by your Dr
Bathing Restrictions: None
Activity Restrictions/Additional Instructions:
Please ensure from neurology/neurosurgeon if Plavix is necessary
Referrals:
Cooper Bhagat MD [Family Provider, [facility]] - in less than 1 week
Prescriptions:
New
amlodipine 5 mg Tablet
5 mg PO DAILY Qty: 0 0RF
Continued
atorvastatin 40 mg Tablet
40 mg PO DAILY
acetaminophen 325 mg Tablet
650 mg PO Q6HPRN PRN (Reason: mild pain)
carvedilol 6.25 mg Tablet
6.25 mg PO BID
magnesium hydroxide [Milk of Magnesia] 400 mg/5 mL Suspension
30 ml PO HSPRN PRN (Reason: if no bm by 3rd day)
pantoprazole 40 mg Tablet,Delayed Release (Dr/Ec)
40 mg PO BID
aspirin 81 mg Tablet,Chewable
81 mg PO DAILY
ferrous gluconate 324 mg (37.5 mg iron) Tablet
324 mg PO Q48H
Held
clopidogrel 75 mg Tablet
75 mg PO DAILY
Hold Instructions: Restart if okay with neurology/neurosurgery
valsartan-hydrochlorothiazide 320-25 mg Tablet
1 tab PO DAILY
Hold Instructions: Restart if blood pressure greater than 140/90
Discontinued
amlodipine 10 mg Tablet
10 mg PO DAILY
Discharge Orders:
Discharge Patient (As Directed); Ordered 01/19/25
Ordered By: Moreno Vega
Discharge Date and Time
Discharge Date/Time: 01/19/25 17:45
Print Language: ROMANIAN
--- NOTE | 2025-01-19 13:03 | CM ---
Addendum entered by Jessy May 01/19/25 14:41:
Ambulance picker and packer scheduled for 5:30 PM; facility liaison notified
Original Note:
Plan: Discharge back to [facility] today via Ambulance
Report # [phone]
[2025-01-19] MEDS: FERRLECIT 110 MG IV (14:20)
[2025-01-19 16:44] VITALS: BP 92/53
--- NOTE | 2025-01-20 10:04 | PN.CDI ---
CDI
- -
CDI:
Physician Documentation Request
Admit Date: 01/17/25 03:02
Dear Doctor Gary,
Patient admitted with GI bleed.
01/18 Wound care note: 'Per past chart review patient is 69 inches and current weight is 134 lbs = BMI 19.8.'
If possible, please provide an associated diagnosis related to the abnormal BMI, such as:
Underweight
Cachectic
BMI is not significant
Other
BMI < or = to 19.9
Underweight
Weight Loss
Cachectic
Anorexia
Use of terms such as suspected, likely, concern for, or probable (associated with a specific diagnosis that is being evaluated, monitored, or treated as if it exists) are acceptable and can be coded in the inpatient setting, when documented at the
time of discharge.
Thank you,
Maribel Galvin RN, BSN
CDI Specialist
Available via [place] text
Please use your independent medical judgment in providing your response.
== END 2025-01-19 17:45 | DRG 57 ==
LOC: 2 SOUTH 03:02
PROVIDERS: ADMITTING PHYSICIAN Hospitalist; ATTENDING PHYSICIAN Internal Medicine; CONSULT PHYSICIAN Internal Medicine; EMERGENCY PHYSICIAN Emergency Medicine; FAMILY PHYSICIAN Family Medicine
PROC: 30233N1 Transfusion of Nonautologous Red Blood Cells into Peripheral Vein, Percutaneous Approach (ICD-10-PCS; 2025-01-16)
PROC: 0DJ08ZZ Inspection of Upper Intestinal Tract, Via Natural or Artificial Opening Endoscopic (ICD-10-PCS; 2025-01-17)
DX: I69.351 Hemiplegia and hemiparesis following cerebral infarction affecting right dominant side (principal); D62 Acute posthemorrhagic anemia; D50.9 Iron deficiency anemia, unspecified; K29.70 Gastritis, unspecified, without bleeding; I69.320 Aphasia following cerebral infarction; Z53.20 Procedure and treatment not carried out because of patient's decision for unspecified reasons; Z79.82 Long term (current) use of aspirin; Z87.891 Personal history of nicotine dependence; I25.10 Atherosclerotic heart disease of native coronary artery without angina pectoris; K21.9 Gastro-esophageal reflux disease without esophagitis; I10 Essential (primary) hypertension; E78.00 Pure hypercholesterolemia, unspecified; K31.89 Other diseases of stomach and duodenum; Z79.02 Long term (current) use of antithrombotics/antiplatelets; Z79.899 Other long term (current) drug therapy
CPT/HCPCS: 80048; 80053; 82607; 82728; 82746; 83540; 83550; 85014; 85018; 85025; 85027; 86850; 86900; 86901; 86920; 87070; 92610; 93005; 97163; 97166; 97535; J2916; P9016